=== PATIENT | male | born 1955 | race Hispanic/Latino ===

== ENCOUNTER 2024-11-17 06:14 | Emergency (ER) | payer OTHER ==
[2024-11-17] MEDS ORDERED: dexAMETHasone 10 MG/ML VIAL ONE (07:17)
[2024-11-17] MEDS ORDERED: HYDROCODONE/APAP 5/325 MG TAB ONE (07:17)
[2024-11-17] MEDS ORDERED: KETOROLAC 30 MG/ML INJ ONE (07:17)
--- NOTE | 2024-11-17 08:34 | ER ---
Nurse's Notes [facility] Name: Benjamin Goss Age: 68 yrs Sex: Male : 1955 Arrival Date: 11/17/2024 Time: 06:14 Bed 20 Private MD: Diagnosis: Radiculopathy, lumbar region Presentation: 11/17 06:21 Chief complaint: Patient states: LOWER BACK PAIN FOR THE PAST TWO WEEKS OFF AND ON. ha1 THIS MORNING SUDDEN ONSET OF LEFT LEG TINGLING. 06:21 Coronavirus screen: Client denies travel out of the [place] in the last 14 days. Ebola ha1 Screen: No symptoms or risks identified at this time. Initial Sepsis Screen: Does the patient meet any 2 criteria? No. Patient's initial sepsis screen is negative. Does the patient have a suspected source of infection? No. Patient's initial sepsis screen is negative. Risk Assessment: Do you want to hurt yourself or someone else? Patient reports no desire to harm self or others. Onset of symptoms was November 17, 2024. 06:21 Method Of Arrival: Ambulatory ha1 06:21 Acuity: RAHUL 3 ha1 Triage Assessment: 06:21 General: Appears uncomfortable, Behavior is calm, cooperative. Pain: Complains of pain ha1 in medial aspect of left thigh Quality of pain is described as tingling. Neuro: Level of Consciousness is awake, alert, obeys commands, Oriented to person, place, time, situation. Cardiovascular: Patient's skin is warm and dry. Respiratory: Airway is patent Respiratory effort is even, unlabored, Respiratory pattern is regular, symmetrical. Derm: Skin is pink, warm \T\ dry. Musculoskeletal: Circulation, motion, and sensation intact. Historical: - Allergies: 06:21 No Known Allergies; ha1 - PMHx: 06:21 Arthritis; ha1 - Immunization history:: Adult Immunizations unknown. - Infectious Disease History:: Denies. - Social history:: Smoking status: Patient denies any tobacco usage or history of. - Family history:: not pertinent. - Hospitalizations: : No recent hospitalization is reported. Screenin:51 [facility] ED Fall Risk Assessment (Adult) History of falling in the last 3 months, rg5 including since admission No falls in past 3 months (0 pts) Confusion or Disorientation No (0 pts) Intoxicated or Sedated No (0 pts) Impaired Gait Yes (1 pt) Mobility Assist Device Used Yes (1 pt) Altered Elimination No (0 pt) Score/Fall Risk Level 3 or more points = High Risk Oriented to surroundings, Maintained a safe environment, Hourly rounding (assess needs \T\ fall precautionary measures) done. Abuse screen: Denies threats or abuse. Nutritional screening: No deficits noted. Tuberculosis screening: No symptoms or risk factors identified. Assessment: 06:51 General: Appears uncomfortable, Behavior is calm, cooperative, appropriate for age. rg5 Pain: Complains of pain in left leg. Neuro: Level of Consciousness is awake, alert, obeys commands, Oriented to person, place, time, situation. Cardiovascular: Denies chest pain, Patient's skin is warm and dry. Respiratory: Airway is patent Trachea midline Respiratory effort is even, unlabored, Respiratory pattern is regular, symmetrical. GI: Abdomen is flat, non-distended. : No signs and/or symptoms were reported regarding the genitourinary system. EENT: No deficits noted. Derm: Skin is intact, Skin is dry, Skin is normal. Musculoskeletal: Circulation, motion, and sensation intact. Range of motion: intact in all extremities. 07:26 General: Appears comfortable, Behavior is calm, cooperative, appropriate for age. Pain: ap3 Complains of pain in left leg. Neuro: Level of Consciousness is awake, alert, obeys commands, Oriented to person, place, time, situation, Appropriate for age. Cardiovascular: Patient's skin is warm and dry. Respiratory: Airway is patent Respiratory effort is even, unlabored, Respiratory pattern is regular, symmetrical. Vital Signs: 06:21 BP 155 / 85; Pulse 62; Resp 17 S; Temp 97.9(O); Pulse Ox 95% on R/A; Weight 106.14 kg; ha1 Height 5 ft. 10 in. ; 06:50 BP 144 / 80; Pulse 65; Resp 18; Pulse Ox 96% on R/A; Pain 8/10; rg5 08:52 BP 152 / 74; Pulse 58; Resp 17; Pulse Ox 95% ; ap3 06:21 Body Mass Index 33.58 (106.14 kg, 177.8 cm) ha1 06:50 Pain Scale: Adult rg5 ED Course: 06:19 Patient arrived in ED. kmf 06:22 Puneet Shankar RN is Primary Nurse. rg5 06:45 Triage completed. ha1 06:51 Patient has correct armband on for positive identification. Bed in low position. Call rg5 light in reach. Side rails up X 1. Door closed. Noise minimized. 06:51 No provider procedures requiring assistance completed. Inserted saline lock: 20 gauge rg5 in right forearm, using aseptic technique. Blood collected. Flushed with 10 mL NS. 06:57 Bismark Dias MD is Attending Physician. rn 07:28 Arm band placed on left wrist. ap3 07:28 Provided Education on: medications prior to administration. ap3 07:31 Primary Nurse role handed off by Puneet Shankar RN ap3 07:31 Silvia Garza RN is Primary Nurse. ap3 08:53 IV discontinued, intact, bleeding controlled, No redness/swelling at site. Pressure ap3 dressing applied. Administered Medications: 07:26 Drug: Decadron - Dexamethasone IVP 10 mg IVP once Route: IVP; Site: right forearm; ap3 08:52 Follow up: Response: No adverse reaction ap3 07:26 Drug: Ketorolac IVP 15 mg IVP once Route: IVP; Site: left forearm; ap3 08:52 Follow up: Response: No adverse reaction; Pain is decreased ap3 07:26 Drug: HYDROcodone-acetaminophen PO 5 mg-325 mg 1 tabs PO once Route: PO; ap3 08:52 Follow up: Response: No adverse reaction; Pain is decreased ap3 Medication: 06:51 VIS not applicable for this client. rg5 Outcome: 08:33 Discharge ordered by . rn 08:52 Discharged to home ambulatory, with crutches, with family, ap3 08:52 Condition: good 08:52 Discharge instructions given to patient, Instructed on discharge instructions, follow up and referral plans. medication usage, Demonstrated understanding of instructions, follow-up care, medications, Prescriptions given X 3, 08:53 Patient left the ED. ap3 Signatures: Bismark Dias MD MD rn Prokisch, Amanda, RN RN ap3 Verenice Gomez RN RN ha1 Aida Christiansen [facility] Puneet Shankar RN RN rg5
--- NOTE | 2024-11-17 08:34 | EDPHYS ---
Physician Documentation [facility] Name: Benjamin Gsos Age: 68 yrs Sex: Male : 1955 Arrival Date: 11/17/2024 Time: 06:14 Bed 20 Private MD: ED Physician Bismark Dias HPI: 11/17 07:21 This 68 yrs old Male presents to ER via Ambulatory with complaints of Leg Pain.rn 07:21 The patient presents with pain. The complaints affect the left quadriceps. rn 07:25 Onset: The symptoms/episode began/occurred 2 week(s) ago. Modifying factors: The rn symptoms are alleviated by nothing. the symptoms are aggravated by movement. Severity of symptoms: At their worst the symptoms were moderate, in the emergency department the symptoms are unchanged. The patient has not experienced similar symptoms in the past. The patient has been recently seen by a physician:. Patient reports left leg pain and tingling that started yesterday. Patient reports recently had injection of steroids in the right knee due to knee pain. Has been using crutches and limping for the last 2 weeks. Pain and tingling with burning sensation to the left lower back that radiates to the left thigh since yesterday. No fall or injury. No fever or chills.. Historical: - Allergies: 06:21 No Known Allergies; ha1 - PMHx: 06:21 Arthritis; ha1 - Immunization history:: Adult Immunizations unknown. - Infectious Disease History:: Denies. - Social history:: Smoking status: Patient denies any tobacco usage or history of. - Family history:: not pertinent. - Hospitalizations: : No recent hospitalization is reported. ROS: 07:25 Constitutional: Negative for fever, chills, and weight loss, Cardiovascular: Negative rn for chest pain, palpitations, and edema, Respiratory: Negative for shortness of breath, cough, wheezing, and pleuritic chest pain, Abdomen/GI: Negative for abdominal pain, nausea, vomiting, diarrhea, and constipation, Back: Negative for injury and pain, MS/Extremity: Positive for left knee swelling and pain Skin: Negative for injury, rash, and discoloration, Neuro: Negative for headache, weakness, numbness, tingling, and seizure, Exam: 07:25 Constitutional: This is a well developed, well nourished patient who is awake, alert, rn and in no acute distress. Cardiovascular: Regular rate and rhythm. No pulse deficits. Skin: Warm, dry, no cyanosis MS/ Extremity: Pulses equal, no cyanosis. Neurovascular intact. Full, normal range of motion. Equal circumference. No weakness or drift noted. No swelling or deformity. Neuro: Awake and alert, GCS 15, oriented to person, place, time, and situation. Cranial nerves II-XII grossly intact. Motor strength 5/5 in all extremities. Decree sensation of soft touch Rachel to left thigh. No decrease sensation below the knee. Normal sensation of the left upper extremity. Cerebellar exam normal. Normal gait. Vital Signs: 06:21 BP 155 / 85; Pulse 62; Resp 17 S; Temp 97.9(O); Pulse Ox 95% on R/A; Weight 106.14 kg; ha1 Height 5 ft. 10 in. ; 06:50 BP 144 / 80; Pulse 65; Resp 18; Pulse Ox 96% on R/A; Pain 8/10; rg5 08:52 BP 152 / 74; Pulse 58; Resp 17; Pulse Ox 95% ; ap3 06:21 Body Mass Index 33.58 (106.14 kg, 177.8 cm) ha1 06:50 Pain Scale: Adult rg5 MDM: 06:57 Medical Screening Exam initiated rn 08:32 Differential diagnosis: radiculopathy, neuropathy. Data reviewed: vital signs, nurses rn notes, and as a result, I will discharge patient. Counseling: I had a detailed discussion with the patient and/or guardian regarding the historical points, exam findings, and any diagnostic results supporting the discharge/admit diagnosis, the need for outpatient follow up, to return to the emergency department if symptoms worsen or persist or if there are any questions or concerns that arise at home. Response to treatment: the patient's symptoms have mildly improved after treatment, and as a result, I will discharge patient. Special discussion: I discussed with the patient/guardian in detail that at this point there is no indication for admission to the hospital. It is understood, however, that if the symptoms persist or worsen the patient needs to return immediately for re-evaluation. Based on the history and exam findings, there is no indication for further emergent testing or inpatient evaluation. I discussed with the patient/guardian the need to see the back specialist for further evaluation of the symptoms. ED course: Mild improvement after medication. Most likely radiculopathy or neuropathy secondary to compensation and abnormal gait for the last 2 weeks following intra-articular injection on the opposite side. Patient has also been using crutches and limping a lot on right side. Will discharge home with medication and follow-up with back specialist. Also recommended physical therapy.. 11/17 07:06 Order name: IV Start; Complete Time: 07:06 rn Administered Medications: 07:26 Drug: Decadron - Dexamethasone IVP 10 mg IVP once Route: IVP; Site: right forearm; ap3 08:52 Follow up: Response: No adverse reaction ap3 07:26 Drug: Ketorolac IVP 15 mg IVP once Route: IVP; Site: left forearm; ap3 08:52 Follow up: Response: No adverse reaction; Pain is decreased ap3 07:26 Drug: HYDROcodone-acetaminophen PO 5 mg-325 mg 1 tabs PO once Route: PO; ap3 08:52 Follow up: Response: No adverse reaction; Pain is decreased ap3 Disposition Summary: 11/17/24 08:33 Discharge Ordered Notes: Location: Home rn Problem: new rn Symptoms: have improved rn Condition: Stable rn Diagnosis - Radiculopathy, lumbar region rn Followup: rn - With: Private Physician - When: As needed - Reason: Recheck today's complaints, Re-evaluation by your physician Discharge Instructions: - Discharge Summary Sheet rn - Lumbosacral Radiculopathy rn - Neuropathic Pain rn - Pinched Nerve rn - Back Exercises rn Forms: - Medication Reconciliation Form rn - Antibiotic sales intern - Prescription Opioid Use rn - Patient Portal Instructions rn - Leadership Thank You Letter rn Prescriptions: - gabapentin 100 mg Oral capsule - take 1 capsule ORAL route every 12 hours As needed; 14 capsule; Refills: 0, rn Product Selection Permitted - Medrol (Neil) 4 mg Oral Tablets, Dose Pack - take 1 tablet ORAL route as directed - follow package instructions; 1 packet; rn Refills: 0, Product Selection Permitted - Cyclobenzaprine 5 mg Oral tablet - take 1 tablet ORAL route 1 to 2 times per day As needed; 10 tablet; Refills: 0, rn Product Selection Permitted Signatures: Bismark Dias MD MD rn Prokisch, Amanda RN RN ap3 Verenice Gomez RN RN ha1 Puneet Shankar, RN RN rg5
[2024-11-17 09:11] VITALS: TEMP 97.9
[2024-11-17 09:23] VITALS: BP 152/74; O2SAT 95
== END 2024-11-17 08:53 | disposition home or self-care (01) ==
LOC: ER 06:14
DX: M54.16 Radiculopathy, lumbar region (principal)
CPT/HCPCS: 99284; J1100